=== PATIENT | female | born 1945 | race Hispanic/Latino ===

== ENCOUNTER → 2023-09-29 | Day surgery (SDC) | payer MEDICARE ==
[2023-09-22 10:38] LABS: BASOPHILS # (AUTO) 0.1 (0.0-0.1); BASOPHILS % 0.9 % (0.0-1.0); EOSINOPHILS # (AUTO) 0.3 (0.0-0.4); EOSINOPHILS % 3.3 % (0.0-6.0); HEMATOCRIT 35.3 % (34.2-44.1); HEMOGLOBIN 10.9 g/dL (12.0-16.0); LYMPHOCYTES % 25.6 % (18.0-39.1); MEAN CORPUSCULAR HEMOGLOBIN 24.5 pg (28-32); MEAN CORPUSCULAR HGB CONC 30.9 g/dL (31-35); MEAN CORPUSCULAR VOLUME 79.5 fL (81-99); MONOCYTES # (AUTO) 0.6 (0.2-0.8); MONOCYTES % 7.9 % (4.4-11.3); NEUTROPHILS # (AUTO) 4.9 (2.1-6.9); NEUTROPHILS % 61.9 % (38.7-80.0); PLATELET COUNT 273 x10e3/uL (140-360); RED BLOOD COUNT 4.44 x10e6/uL (3.6-5.1); RED CELL DISTRIBUTION WIDTH 16.3 % (11.7-14.4); WHITE BLOOD COUNT 7.84 x10e3/uL (4.8-10.8)
[~2023-09-29] MED LIST: ASPIRIN81 MG PO; B12 ACTIVE1000 MCG PO; CALTRATE-600 W1 EACH PO; CLOPIDOGREL75 MG PO; FENOFIBRATE160 MG PO; FENTANYL CITRATE/PF 100MCG/2 ML INJ ONE; FERROUS SULFAT325 MG PO; GLIPIZIDE5 MG PO; GLUCAGON FOR INJ 1 MG VIAL ONE; HYOSCYAMINE SULFATE 0.5 MG/ML INJ ONE; LEVOTHYROXINE100 MC1 IV; LIDOCAINE HCL 2% LOCAL INJ 5 ML SDV VIAL INJ ONE; METFORMIN HCL500 MG PO; METOPROLOL TART25 MG PO; NEURONTIN300 MG PO; NIFEDIPINE ER30 M1 PO; OMEPRAZOLE40 MG PO; PROPOFOL IV EMULSION 10 MG/ML 20 ML VIAL ONE; VASOTEC10 M1 PO; VITAMIN D31250 MCG PO
[2023-09-29] MEDS: LACTATED RINGER'S 1,000 ML ONE (11:45)
[2023-09-29 12:52] VITALS: TEMP 97.8
[2023-09-29 13:20] VITALS: BP 140/70; PULSE 72; RESP 15; O2SAT 96
== END | disposition home or self-care (01) ==
LOC: OR 11:30
PROVIDERS: ATTEND Internal Medicine Gastroenterology
DX: D64.9 Anemia, unspecified (principal); K29.70 Gastritis, unspecified, without bleeding; K31.89 Other diseases of stomach and duodenum; K57.30 Diverticulosis of large intestine without perforation or abscess without bleeding; K64.8 Other hemorrhoids; I10 Essential (primary) hypertension; E78.5 Hyperlipidemia, unspecified; E11.9 Type 2 diabetes mellitus without complications; Z01.810 Encounter for preprocedural cardiovascular examination; Z01.812 Encounter for preprocedural laboratory examination; Z79.82 Long term (current) use of aspirin; Z79.02 Long term (current) use of antithrombotics/antiplatelets; Z79.84 Long term (current) use of oral hypoglycemic drugs; Z95.5 Presence of coronary angioplasty implant and graft
CPT/HCPCS: 36415; 43239; 45378; 85025; 93005; J1610; J1980; J2001; J2470; J2704; J3010; J7121

== ENCOUNTER → 2023-10-27 | Outpatient (REF) | payer MEDICARE ==
[~2023-10-27] MED LIST changes: -FENTANYL CITRATE/PF 100MCG/2 ML INJ ONE; -GLUCAGON FOR INJ 1 MG VIAL ONE; -HYOSCYAMINE SULFATE 0.5 MG/ML INJ ONE; -LIDOCAINE HCL 2% LOCAL INJ 5 ML SDV VIAL INJ ONE; -PROPOFOL IV EMULSION 10 MG/ML 20 ML VIAL ONE
== END ==
LOC: DX 10:28
PROVIDERS: ATTEND Nurse Practitioner
DX: Z86.2 Personal history of diseases of the blood and blood-forming organs and certain disorders involving the immune mechanism (principal)
CPT/HCPCS: 74250